=== PATIENT | male | born 1995 | race African-American/Black ===

== ENCOUNTER 2022-07-24 07:35 | Emergency (ER) | payer OTHER ==
[2022-07-24 07:52] VITALS: BP 136/81; PULSE 83; RESP 18; TEMP 99.6; BMI 32.3
[2022-07-24] MEDS ORDERED: ACETAMINOPHEN 500 MG TABLET (FP) PO ONE (07:53)
[2022-07-24] MEDS ORDERED: IBUPROFEN 600 MG TABLET (FP) PO ONE (07:53)
== END 2022-07-24 09:04 | disposition home or self-care (01) ==
LOC: JER 07:35
DX: U07.1 COVID-19 (principal)
CPT/HCPCS: 0241U-QW; 99283-25